=== PATIENT | female | born 1995 | race Caucasian/White ===

== ENCOUNTER 2018-01-16 08:39 | Day surgery (SDC) | payer OTHER ==
[~2018-01-16 08:39] MED LIST: Buffered Lidocaine 0.9% SYRIN* 5 ML/SYR SYRINGE INTRADERM ONE; Sodium Citrate/Citric Acid* 15 ML UDC PO ONE
[2018-01-16] MEDS ORDERED: Bupivacaine 0.25% SDV* 30 ML ONE (08:43)
[2018-01-16] MEDS ORDERED: Sodium Citrate/Citric Acid* 15 ML UDC ONE (08:48)
[2018-01-16] MEDS ORDERED: ceFAZolin 2 GM PREMIX (*) 2 GM/50 ML BAG IVPB ONE (08:48)
[2018-01-16] MEDS ORDERED: Buffered Lidocaine 0.9% SYRIN* 5 ML/SYR SYRINGE ONE (08:48)
[2018-01-16] MEDS ORDERED: fentaNYL* 50 MCG/ML 2 ML VIAL (100 MCG VIAL) IV PRN (10:42)
[2018-01-16] MEDS ORDERED: Ketorolac INJ* 30 MG/ML 1 ML VIAL IV PRN (10:42)
[2018-01-16] MEDS ORDERED: Naloxone* 0.4 MG/ML 1 ML VIAL IV PRN (10:42)
[2018-01-16] MEDS ORDERED: Ondansetron INJ* 2 MG/ML VIAL IV PRN (10:42)
[2018-01-16] MEDS ORDERED: Lidocaine 2% PF * 5 ML VIAL ONE (10:59)
[2018-01-16] MEDS ORDERED: Propofol* 10 MG/ML 20 ML BTL IV PUSH ONE (10:59)
[2018-01-16] MEDS ORDERED: fentaNYL* 50 MCG/ML 2 ML VIAL (100 MCG VIAL) ONE (11:21)
[2018-01-16] MEDS ORDERED: Ondansetron INJ* 2 MG/ML VIAL ONE (13:17)
[2018-01-16] MEDS ORDERED: Scopolamine 1.5 mg* PATCH ONE (13:24)
[2018-01-16] MEDS ORDERED: Ketorolac INJ* 30 MG/ML 1 ML VIAL ONE (13:48)
[2018-01-16 14:00] VITALS: BP 109/78
--- NOTE | 2018-01-16 15:10 | OP ---
DATE OF OPERATION: 01/16/18 - SDS DATE OF : 89 SURGEON: Conner Vazquez MD ADMINISTRATIVE AIDE: ELIZABETH Person. An office assistant was needed for the procedure to aid in positioning of the arm and retraction. ANESTHESIOLOGIST: Dr. Blue. ANESTHESIA: General. PRE-OP DIAGNOSIS: Right cubital tunnel syndrome. POST-OP DIAGNOSIS: Right cubital tunnel syndrome. OPERATIVE PROCEDURE: Right in situ cubital tunnel release. INDICATIONS: Bushra is 22. She has had progressive ulnar nerve symptoms; they are becoming quite severe. She wanted to see if she could really get some relief. It localized in the elbow and so we talked about risks and benefits and she wanted to proceed with a decompression. ESTIMATED BLOOD LOSS: 2 mL. COMPLICATIONS: None. FINDINGS: As expected. DESCRIPTION OF PROCEDURE: Bushra was seen in the preoperative holding area. The correct site, side, and procedure were identified. We came back to the operating room and the arm was prepped and draped in the usual fashion. A time- out was performed. I made a curvilinear incision centered over West's ligament. Dissection was carried down. The fascia just proximal to the West's ligament was released and appendiceal retractor was placed proximally and the fascia over the nerve was released past the arcade of [place]. I then came distally and released the West's ligament. Superficial FCU fascia was released. The two heads of the FCU were then split and the subfascial layer was released. There was a very prominent vascular bundle coming over the nerve right where the FCU began. I went ahead and mobilized this and cauterized and released it with a bipolar. Once I had completed the decompression, I checked. There was no subluxation of the nerve, everything was looking good, so we irrigated out the wound. Subcutaneous tissue was closed with 3-0 Vicryl. Skin was closed with 3- 0 Monocryl and Steri-Strips. Wounds were dressed and she was taken to recovery room in stable condition. [id number]/[facility] #: [id number] MTDD
== END 2018-01-16 14:13 | disposition home or self-care (01) ==
LOC: OR 08:39
PROVIDERS: ATTEND Orthopaedic Surgery Hand Surgery
DX: G56.21 Lesion of ulnar nerve, right upper limb (principal)
CPT/HCPCS: 81025; A9270-GY; J0690; J1885; J2405; J2704; J3010